=== PATIENT | male | born 1950 | race Caucasian/White ===

== ENCOUNTER 2021-04-13 08:47 | Inpatient (IN) ==
[2021-04-13] MEDS ORDERED: Ondansetron 4 MG/2 ML VIAL IVP ONE (09:47)
[2021-04-13] MEDS ORDERED: *HR* FentaNYL (PF) 100 MCG/2 ML VIAL IVP ONE ×2 (09:47→13:07)
[2021-04-13 10:13] LABS: Basophils # 0.1 K/mcL (0.0-0.2); Basophils % 0.6 %; Eosinophils # 0.1 K/mcL (0.0-0.6); Eosinophils % 1.7 %; Hematocrit 50.4 % (37.5-50.1); Hemoglobin 16.8 g/dL (12.9-16.9); Immature Granulocytes % 0.4 % (0-4); Lymphocytes # 2.2 K/mcL (0.6-4.6); Lymphocytes % 27.1 %; Mean Corpuscular HGB Conc 33.3 g/dL (31.6-35.5); Mean Corpuscular Hemoglobin 29.5 pg (28.0-33.3); Mean Corpuscular Volume 88.4 fL (83.0-100.0); Mean Platelet Volume 10.6 fL (9.4-12.4); Monocytes # 0.7 K/mcL (0.0-1.3); Monocytes % 8.7 %; Platelet Count 243 K/mcL (140-400); Red Cell Distribution Width 12.7 % (11.5-14.5); Segmented Neutrophils % 61.5 %; White Blood Count 8.2 K/mcL (4.3-11.1)
[2021-04-13 10:48] LABS: Alanine Aminotransferase 79 Units/L (7-52); Albumin 4.5 g/dL (3.5-5.7); Albumin/Globulin Ratio 1.8 (1.1-2.2); Alkaline Phosphatase 156 Units/L (34-104); Aspartate Amino Transferase 125 Units/L (13-39); BUN/Creatinine Ratio 16 (6-26); Bilirubin,Total 2.6 mg/dL (0.3-1.0); Blood Urea Nitrogen 18 mg/dL (8-23); Calcium 9.8 mg/dL (8.6-10.3); Carbon Dioxide 27 mEq/L (23-29); Chloride 101 mEq/L (98-107); Globulin 2.5 g/dL (2.4-3.5); Glucose 123 mg/dL (70-105); Lipase 10548 Units/L (11-82); Osmolality,Calculated 289 (280-300); Potassium 3.5 mEq/L (3.5-5.1); Sodium 138 mEq/L (136-145); eGFR For African Americans > 60 (> 60); eGFR For Non-African Americans > 60 (> 60)
[2021-04-13] MEDS ORDERED: Isovue-370 500 ML BOTTLE IVP ONE (10:57)
[2021-04-13] MEDS ORDERED: Isovue-370 500 ML BOTTLE PO ONE (11:56)
[2021-04-13] MEDS ORDERED: Naloxone 0.4 MG/ML INJ IVP PRN (14:21)
[2021-04-13] MEDS ORDERED: Ondansetron ODT 4 MG TAB.RAPDIS SL PRN (14:21)
[2021-04-13] MEDS ORDERED: Mag Hydrox/Al Hydrox/Simeth 30 ML UDC PO PRN (14:21)
[2021-04-13] MEDS ORDERED: 0.9 % Sodium Chloride 1,000 ML IVC SCH (14:30)
[2021-04-13] MEDS ORDERED: D5% in Water 1,000 ML IVC PRN (14:44)
[2021-04-13] MEDS ORDERED: *HR* Dextrose 50 % in Water (Vial) 50 ML VIAL IVP PRN (14:44)
[2021-04-13] MEDS ORDERED: Dextrose Gel 15 GM/37.5 ML TUBE PO PRN ×2 (14:44)
[2021-04-13 15:00] LABS: Prothrombin Time 11.9 Seconds (9.4-12.1)
[2021-04-13] MEDS: Insulin LISPRO 300 UNITS/3 ML VIAL SUBQ SCH ×2 (17:01→20:45)
[2021-04-13] MEDS: Morphine Sulfate 2 MG/ML SYRINGE IVP PRN ×2 (17:09→20:59)
[2021-04-13 19:25] LABS: Estimated Average Glucose 105 mg/dl; Hemoglobin A1C 5.3 %
[2021-04-13] MEDS: 0.9 % Sodium Chloride 1,000 ML IVC SCH (22:09)
[2021-04-14] MEDS: Morphine Sulfate 2 MG/ML SYRINGE IVP PRN ×3 (03:45→18:13)
[2021-04-14] MEDS: *HR* Enoxaparin 40 MG/0.4 ML SYRINGE SQ SCH (04:54)
[2021-04-14] MEDS: 0.9 % Sodium Chloride 1,000 ML IVC SCH ×3 (04:57→20:10)
[2021-04-14 06:14] LABS: Basophils % 0.1 %; Hematocrit 48.6 % (37.5-50.1); Hemoglobin 16.1 g/dL (12.9-16.9); Immature Granulocytes % 0.4 % (0-4); Lymphocytes # 0.6 K/mcL (0.6-4.6); Lymphocytes % 3.9 %; Mean Corpuscular HGB Conc 33.1 g/dL (31.6-35.5); Mean Corpuscular Hemoglobin 29.7 pg (28.0-33.3); Mean Corpuscular Volume 89.5 fL (83.0-100.0); Mean Platelet Volume 10.1 fL (9.4-12.4); Monocytes % 6.3 %; Neutrophils # 13.6 K/mcL (1.6-8.9); Platelet Count 183 K/mcL (140-400); Red Blood Count 5.43 M/mcL (4.19-5.50); Red Cell Distribution Width 12.8 % (11.5-14.5); Segmented Neutrophils % 89.3 %; White Blood Count 15.2 K/mcL (4.3-11.1)
[2021-04-14 07:47] LABS: Alanine Aminotransferase 140 Units/L (7-52); Albumin 3.9 g/dL (3.5-5.7); Albumin/Globulin Ratio 1.9 (1.1-2.2); Alkaline Phosphatase 188 Units/L (34-104); Aspartate Amino Transferase 110 Units/L (13-39); BUN/Creatinine Ratio 14 (6-26); Bilirubin,Total 3.9 mg/dL (0.3-1.0); Blood Urea Nitrogen 13 mg/dL (8-23); Calcium 8.5 mg/dL (8.6-10.3); Carbon Dioxide 26 mEq/L (23-29); Chloride 100 mEq/L (98-107); Chol/HDL Ratio 3.4 (0-4.9); Cholesterol 207 mg/dL (< 200); Globulin 2.1 g/dL (2.4-3.5); Glucose 107 mg/dL (70-105); HDL Cholesterol 61 mg/dL (40-59); LDL Cholesterol,Calculated 138 mg/dL (< 100); Magnesium 1.7 mg/dL (1.6-2.6); Osmolality,Calculated 277 (280-300); Phosphorous 2.8 mg/dL (2.7-4.5); Potassium 4.6 mEq/L (3.5-5.1); Sodium 133 mEq/L (136-145); Triglycerides 42 mg/dL (< 150); eGFR For African Americans > 60 (> 60); eGFR For Non-African Americans > 60 (> 60)
[2021-04-14] MEDS: Insulin LISPRO 300 UNITS/3 ML VIAL SUBQ SCH ×4 (10:01→20:12)
[2021-04-14] MEDS: Pantoprazole 40 MG VIAL IVP SCH (10:05)
[2021-04-14 10:52] LABS: Amylase 316 Units/L (29-103); Lipase 573 Units/L (11-82)
[2021-04-14] MEDS: Ondansetron 4 MG/2 ML VIAL IVP PRN ×2 (12:50→23:20)
[2021-04-15] MEDS: 0.9 % Sodium Chloride 1,000 ML IVC SCH ×5 (03:18→18:55)
[2021-04-15] MEDS: *HR* Enoxaparin 40 MG/0.4 ML SYRINGE SQ SCH (05:43)
[2021-04-15 07:57] LABS: Hematocrit 41.5 % (37.5-50.1); Mean Corpuscular HGB Conc 33.7 g/dL (31.6-35.5); Mean Corpuscular Hemoglobin 29.9 pg (28.0-33.3); Mean Corpuscular Volume 88.7 fL (83.0-100.0); Mean Platelet Volume 10.5 fL (9.4-12.4); Platelet Count 143 K/mcL (140-400); Red Blood Count 4.68 M/mcL (4.19-5.50); Red Cell Distribution Width 12.9 % (11.5-14.5); White Blood Count 18.7 K/mcL (4.3-11.1)
[2021-04-15 08:15] LABS: Alanine Aminotransferase 73 Units/L (7-52); Albumin 3.4 g/dL (3.5-5.7); Albumin/Globulin Ratio 1.7 (1.1-2.2); Alkaline Phosphatase 134 Units/L (34-104); Aspartate Amino Transferase 40 Units/L (13-39); BUN/Creatinine Ratio 9 (6-26); Bilirubin,Total 3.2 mg/dL (0.3-1.0); Blood Urea Nitrogen 7 mg/dL (8-23); Calcium 8.1 mg/dL (8.6-10.3); Carbon Dioxide 27 mEq/L (23-29); Chloride 95 mEq/L (98-107); Glucose 120 mg/dL (70-105); Lipase 176 Units/L (11-82); Magnesium 1.3 mg/dL (1.6-2.6); Osmolality,Calculated 265 (280-300); Potassium 4.2 mEq/L (3.5-5.1); Sodium 128 mEq/L (136-145); Total Protein 5.4 g/dL (6.4-8.9); eGFR For African Americans > 60 (> 60); eGFR For Non-African Americans > 60 (> 60)
[2021-04-15] MEDS: Pantoprazole 40 MG VIAL IVP SCH (09:05)
[2021-04-15] MEDS: Insulin LISPRO 300 UNITS/3 ML VIAL SUBQ SCH ×4 (09:05→21:47)
[2021-04-15] MEDS ORDERED: *HR* OxyCODONE Immed Rel 5 MG TABLET PO PRN (09:19)
[2021-04-15] MEDS ORDERED: Simethicone 80 MG TAB.CHEW PO PRN (11:23)
[2021-04-15] MEDS ORDERED: Bisacodyl 10 MG RECTAL SUPPOSITORY RC PRN (11:23)
[2021-04-15 13:53] LABS: INR 1.3; Prothrombin Time 15.4 Seconds (9.4-12.1)
[2021-04-15 13:55] LABS: Activated Partial Thrombo Time 33.4 Seconds (26.0-36.0)
[2021-04-15] MEDS: Ipratropium/Albuterol Neb 3 ML IH SCH ×3 (14:13→20:08)
[2021-04-15 14:15] LABS: Bilirubin,Urine Negative (Negative); Blood,Urine Small (Negative); Clarity,Urine Clear (Clear); Color,Urine Yellow (Yellow); Glucose,Urine (UA) Normal (Normal); Ketones,Urine 15 mg/dL (Negative); Leukocyte Esterase,Urine Negative (Negative); Nitrite,Urine Negative (Negative); Protein,Urine 30 mg/dL (Neg-Trace); Urobilinogen,Urine Normal (Normal)
[2021-04-15] MEDS: Ertapenem 1,000 MG in 0.9 % Sodium Chloride Mini Bag 100 ML IVPB SCH (16:53)
[2021-04-15 20:05] LABS: Hepatitis B Surface Antigen Nonreactive (Nonreactive)
[2021-04-15 20:36] LABS: Hepatitis B Core IgM Nonreactive (Nonreactive); Hepatitis C Virus Antibody Nonreactive (Nonreactive)
[2021-04-15 20:38] LABS: Hepatitis A Antibody IgM Nonreactive (Nonreactive)
[2021-04-15] MEDS ORDERED: hydrALAZINE 10 MG TABLET PO PRN (21:18)
[2021-04-15] MEDS: Sennosides 8.6 MG TABLET PO SCH (21:46)
[2021-04-16] MEDS: Ipratropium/Albuterol Neb 3 ML IH SCH ×2 (04:27→10:49)
[2021-04-16] MEDS: *HR* Enoxaparin 40 MG/0.4 ML SYRINGE SQ SCH (04:38)
[2021-04-16 06:07] LABS: Hemoglobin 13.2 g/dL (12.9-16.9); Mean Corpuscular HGB Conc 33.8 g/dL (31.6-35.5); Mean Corpuscular Hemoglobin 29.5 pg (28.0-33.3); Mean Corpuscular Volume 87.2 fL (83.0-100.0); Mean Platelet Volume 10.1 fL (9.4-12.4); Platelet Count 127 K/mcL (140-400); Red Blood Count 4.47 M/mcL (4.19-5.50); Red Cell Distribution Width 12.7 % (11.5-14.5); White Blood Count 12.1 K/mcL (4.3-11.1)
[2021-04-16 06:23] LABS: Alanine Aminotransferase 46 Units/L (7-52); Albumin 3.3 g/dL (3.5-5.7); Albumin/Globulin Ratio 1.7 (1.1-2.2); Alkaline Phosphatase 113 Units/L (34-104); Aspartate Amino Transferase 27 Units/L (13-39); BUN/Creatinine Ratio 10 (6-26); Bilirubin,Total 2.7 mg/dL (0.3-1.0); Blood Urea Nitrogen 7 mg/dL (8-23); Calcium 8.1 mg/dL (8.6-10.3); Carbon Dioxide 25 mEq/L (23-29); Chloride 94 mEq/L (98-107); Glucose 112 mg/dL (70-105); Lipase 49 Units/L (11-82); Magnesium 1.7 mg/dL (1.6-2.6); Osmolality,Calculated 263 (280-300); Potassium 3.5 mEq/L (3.5-5.1); Sodium 127 mEq/L (136-145); Total Protein 5.3 g/dL (6.4-8.9); eGFR For African Americans > 60 (> 60); eGFR For Non-African Americans > 60 (> 60)
[2021-04-16] MEDS: Insulin LISPRO 300 UNITS/3 ML VIAL SUBQ SCH ×2 (08:01→12:25)
[2021-04-16] MEDS: Ertapenem 1,000 MG in 0.9 % Sodium Chloride Mini Bag 100 ML IVPB SCH ×2 (08:01→11:18)
[2021-04-16] MEDS: Pantoprazole 40 MG VIAL IVP SCH ×2 (08:01→11:11)
[2021-04-16] MEDS: Sennosides 8.6 MG TABLET PO SCH (08:06)
[2021-04-16 12:02] VITALS: BP 154/73
[2021-04-16] MEDS: 0.9 % Sodium Chloride 1,000 ML IVC SCH (12:24)
== END 2021-04-16 16:05 | disposition home or self-care (01) | DRG 439 ==
LOC: INPGRE 08:47 → EMEROOGRE 08:47 → INPGRE 14:40
PROVIDERS: ADMIT Family Medicine; ATTEND Family Medicine